=== PATIENT | male | born 1950 | race African-American/Black ===

== ENCOUNTER 2025-05-14 09:02 | Emergency (ER) | payer MEDICARE, SELFPAY ==
--- NOTE | ~2025-05-14 | XR_ITS ---
EXAMINATION: XR knee LT min 4V DATE: 05/14/2025 10:02 INDICATION: Lateral left thigh pain post fall TECHNIQUE: Anteroposterior, 2 oblique and crosstable lateral views of the left knee were obtained COMPARISON: None. FINDINGS: Alignment is normal. No fracture. Joint spaces appear normal on nonweightbearing imaging. No joint effusion. Moderate-sized enthesophyte at the patellar insertion of the distal quadriceps tendon. Small enthesopathic ossicles at the distal patellar tendon. There is mild prepatellar soft tissue swelling rim ossification along the lateral aspect of the distal left thigh. IMPRESSION: 1. No left knee joint effusion. No acute osseous abnormality. Reviewed, dictated and finalized at location A.
--- OUTSIDE RECORDS SUMMARY | 2025-05-14 09:04 | XMS_ITS | Clinical Summary ---
Author Organization [facility] Address [address] [place] [address] Care Team Providers Care Channel Development Manager Name Role Phone Broderick Vergara MD Unavailable [phone] None, Physician Primary Care Provider Unavailabl e Source Comments [facility],non-owned Affiliates and Associated Physician Practices is amultiple site organization consisting of ambulatory clinics and hospital sitesin [place], [place], [place] and [place]. This disclosure is being madepursuant to the Care Everywhere program and may not contain all information available regarding this patient. Last updated 18.[facility] Cost Effective Data Allergies No known active allergies Medications * Be aware that medications may not be up to date on this document. Alwaysverify current medications with the patient. cyanocobalamin (VITAMIN B-12) 1000 MCG tablet Take 1 tablet by mouth once daily 07/30/2017 Active sildenafil (VIAGRA) 100 MG tablet Take 1 tablet by mouth once daily as needed 10 tablet 11 04/12/2020 Active valsartan (DIOVAN) 320 MG tablet Take 1 (one) tablet by mouth once daily 11/27/2021 Active vitamin D, ergocalciferol, (Drisdol) 1.25 MG (42659 UT) capsule Take 1 (one) capsule by mouth every 7 days (once a week) 11/14/2022 Active amLODIPine (Norvasc) 10 MG tablet Take 1 (one) tablet by mouth once daily 09/09/2024 Active Active Problems Problem Noted Date Diagnosed Date Nuclear sclerotic cataract, left 12/23/2024 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 Review of prior office visit suggest reasonably stable glaucoma on topical medication thus far with greater glaucoma damage on the right compared with left. Gonioscopy following dilation does raise concern about possible appositional closure especially in the vertical quadrants of both eyes but trabecular meshwork appears open with compression 360 degrees both eyes with 1+ trabecular meshwork pigmentation. Patient has a goal of reducing dependence on medication and he should do well with a combined phaco/minimally invasive glaucoma surgery approach of the angles. 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 09/13/2023 Age-related nuclear cataract of both eyes 2017 Low vitamin B12 level 07/30/2017 Overview (07/30/2017): 376 pg Hypokalemia 07/30/2014 Adenocarcinoma of prostate (PATRICIA) 07/30/2014 Screen for colon cancer rec'd 02/27/13, 04/03/2013 Essential hypertension, benign 02/27/2013 Seasonal allergic rhinitis 02/27/2013 Resolved Problems Problem Noted Date Diagnosed Date Resolved Date Routine general medical exam ination at a health care facility 07/29/2018 08/01/2020 Peripheral sensory neuropathy 07/30/2017 08/01/2020 Encounters Date Type Department Care Team Description 03/18/2025 8:20 AM CDT Office Visit [facility] - Ophthalmology [address] [place] [phone] Buddy La MD Postsurgical states following surgery of eye and adnexa (Primary Dx) 03/18/2025 Travel from Last 3 Months Immunizations Immunization Administration Dates Next Due INFLUENZA VACCINE 06/01/2021, 9,07/15/2016,2014,06/26/2014 INFLUENZA VACCINE, QUADR. (F LUZONE; FLULAVAL; FLUARIX; AFLURIA QUADRIVALENT; 6MO+), 0.5 ML (IIV4) 07/29/2017 PNEUMOCOCCAL PPSV23 07/29/2018 Pneumococcal Pcv13 Conj 07/29/2019 TD VACCINE 02/27/2009 TDAP (7yrs+) 08/01/2020 Family History Medical History Relation Name Comments Hypertension Brother Cancer - Other Father Cancer - Other Mother Glaucoma Sister Hypertension Sister Relation Name Status Comments Brother Father Mother Sister Social History Tobacco Use Types Packs/Day Years Used Date Smoking Tobacco: Never Smokeless Tobacco: Never Tobacco Cessation:Counseling Given: No Alcohol Use Standard Drinks/Week Comments Yes 2 (1 standard drink = 0.6 oz pur e alcohol) 12 pack a month maybe PHQ-2 Answer Date Recorded Patient Health Questionnaire-2 Score 0 12/24/2024 Sex and Gender Information Value Date Recorded Sex Assigned at Not on file Legal Sex Male 1:45 PM CDT Gender Identity Not on file Sexual Orientation Not on file Last Filed Vital Signs Vital Sign Reading Time Taken Comments Blood Pressure 127/67 01/13/2025 4:37 PM CDT Pulse 53 01/13/2025 4:37 PM CDT Temperature 36.6 C (97.9 F) 01/13/2025 4:29 PM CDT Respiratory Rate 14 01/13/2025 4:37 PM CDT Oxygen Saturation 98% 01/13/2025 4:37 PM CDT Inhaled Oxygen Concentration - - Weight 102.3 kg (225 lb 9.6 oz) 025 12:22 PM CDT Height 188 cm (6' 2) 01/13/2025 12:22 PM CDT Body Mass Index 28.97 01/13/2025 12:22 PM CDT Plan of Treatment Upcoming Encounters Date Type Department Care Team (Late st Contact Info) Description 06/10/2025 2:40 PM CDT Office Visit [facility] - Ophthalmology [address] [place] [phone] Buddy La MD [address] [place] [phone] Health Maintenance Due Date Last Done Comments COLOGUARD (AGES 45-75) - COLON CA SCREENING 1950 CT COLONOGRAPHY - COLON CA SCREENING 1950 FIT - COLON CA SCREENING 1950 FLEX SIG - COLON CA SCREENING 1950 ZOSTER VACCINE (1 of 2) 2002 MEDICARE AWV CALENDAR YEAR 2024 08/01/2020 COVID-19 VACCINE ( season) 2025 INFLUENZA VACCINE (#1) 2025 , 06/29/2019, 07/29/2017, Additional history exists LIPID TESTING 08/01/2025 08/01/2020, 11/2017, 07/29/2017, Additional history exists COLON MONITORING 09/28/2026 09/28/2016, 10/2016, 09/28/2016 COLONOSCOPY - COLON CA SCREENING 09/28/2026 09/28/2016, 09/28/2016, 09/28/2016 Colorectal Cancer Screening 09/28/2026 Respiratory Syncytial Virus (RSV) Vaccine Pt: or over 60 yrs (1 - 1-dose 75+ series) 2027 DTAP/TDAP/TD VACCINES (3 - Td or Tdap) 08/01/2030 08/01/2020, 02/27/2009 HEPATITIS C SCREENING Completed 07/29/2015 PNEUMOCOCCAL VACCINE 50+ Completed 07/29/2019, 11/2017 DEPRESSION SCREENING Completed 12/24/2024 HEPATITIS B VACCINE Aged Out No longe r eligible based on patient's age to complete this topic HIB VACCINE Aged Out No longer eligi ble based on patient's age to complete this topic HPV VACCINE Aged Out No longer eligi ble based on patient's age to complete this topic MENINGOCOCCAL (Group B) VACCINE SHARED DECISION-MAKING Aged Out No longer eligible based on patient's age to complete this topic MENINGOCOCCAL GROUPS A/C/Y/W VACCINE Aged Out No longer eligible based on patient's age to complete this topic Goals Goal Patient Goal Type Associated Problems Recent Progress Patient-Stated? Author Blood Pressure < 140/90 Blood Pressure 127/67( 025 4:37 PM CDT) No Lani Bailey MA Medical Devices Implanted Type Area Railroader Device Identifier Shelf Expiration Date Model / Serial / Lot Stent Opth Russell Hydrus Strl - Sn/A Implanted:Qty: 1 on 12/23/2024 by Buddy La MD at [facility] Right: Eye [employer] 03/25/2026 [id number] / N/A / 171HP [employer] [employer] Extended Vison Uv Absorbing Iol Implanted:Qty: 1 on 12/23/2024 by Buddy La MD at [facility] Right: Eye [employer] 07/17/2026 CCWET0 15.5D / [id number] / N/A Stent Opth Russell Hydrus Strl Implanted:Qty: 1 on 01/13/2025 by Buddy La MD at [facility] Left: Eye [employer] 03/25/2026 [id number] / / 171HPH Clareon Vivity Implanted:Qty: 1 on 01/13/2025 by Buddy La MD at [facility] Left: Eye [employer] 06/08/2028 CCWET0 / [id number] / Procedures Procedure Name Priority Date/Time Associated Diagnosis Comments LIPID PROFILE Routine 08/01/2020 8:55 AM ASSEMBLY ASSOCIATE Lipid screening ENDOSCOPY, COLON, SCREENING Routine 09/28/2016 10:47 AM ASSEMBLY ASSOCIATE HEPATITIS C ANTIBODY Routine 07/29/2015 8:38 AM ASSEMBLY ASSOCIATE Need for hepatitis C screening test from Last 3 Months or Most Recently Relevant to Health Maintenance Results * (ABNORMAL) LIPID PROFILE (08/01/2020 8:55 AM ASSEMBLY ASSOCIATE) Cholesterol 207(H) <200 mg/dL [facility] INSURANCE BILL Triglycerides 120 <150 mg/dL [facility] INSURANCE BILL HDL Cholesterol 49 >40 mg/dL [facility] INSURANCE BILL VLDL Calculated 24 <=30 mg/dL [facility] INSURANCE BILL LDL Calculated 134(H) <130 mg/dL [facility] INSURANCE BILL Comment:Not calculated Blood BLOOD SPECIMEN / Unknown 08/01/2020 8:55 AM ASSEMBLY ASSOCIATE 08/01/2020 Narrative Resulting Agency Comment Lab Testing performed at: [facility] [address] [facility] [phone] Talon Clancy DO LAB - CHEMISTRY ORDERABLES Final Result [facility] INSURANCE BILL [address] [place] [address] * ENDOSCOPY, COLON, SCREENING (09/28/2016 10:47 AM ASSEMBLY ASSOCIATE) Report Endoscopy POC _ Patient Name: Cornell Chi Procedure Date: 09/28/2016 10:47 AM Date of : 1950 Admit Type: Outpatient Age: 66 Gender: Male Attending MD: Pantera Ramos MD _ Procedure: Colonoscopy Indications: Screening for colorectal malignant neoplasm Providers: Pantera Ramos MD (Doctor), Billie Garcia RN, Brent Valladares, Bottle Line Worker Referring MD: Oni Campos MD (Referring MD) Medicines: Monitored Anesthesia Care Complications: No immediate complications. _ Procedure: Pre-Anesthesia Assessment: - ASA Grade Assessment: II - A patient with mild systemic disease. - Airway Examination: Mallampati Class I (tonsillar pillars visualized). After I obtained informed consent, the scope was passed under direct vision. Throughout the procedure, the patient's blood pressure, pulse, and oxygen saturations were monitored continuously. The Colonoscope was introduced through the anus and advanced to the cecum, identified by appendiceal orifice and ileocecal valve. The colonoscopy was performed without difficulty. The patient tolerated the procedure well. The quality of the bowel preparation was good. Impression: - One 5 mm polyp in the rectum, removed with a cold biopsy forceps. Resected and retrieved. - Diverticulosis. Findings: A 5 mm polyp was found in the rectum. The polyp was sessile. The polyp was removed with a cold biopsy forceps. Resection and retrieval were complete. Estimated blood loss: none. A few small-mouthed diverticula were found in the colon. _ Recommendation: - Repeat colonoscopy in 5-10 years for screening purposes. Procedure Code(s): --- Professional --- 45750, Colonoscopy, flexible; with biopsy, single or multiple --- Technical --- 91801, Colonoscopy, flexible; with biopsy, single or multiple Diagnosis Code(s): --- Professional --- Z12.11, Encounter for screening for malignant neoplasm of colon K62.1, Rectal polyp K57.30, Diverticulosis of large intestine without perforation or abscess without bleeding --- Technical --- Z12.11, Encounter for screening for malignant neoplasm of colon K62.1, Rectal polyp K57.30, Diverticulosis of large intestine without perforation or abscess without bleeding CPT copyright 2015 [employer]. All rights reserved. The codes documented in this report are preliminary and upon engineer intern review may be revised to meet current compliance requirements. Pantera Ramos MD 09/28/2016 11:33:29 AM This report has been signed electronically. Number of Addenda: 0 Note Initiated On: 09/28/2016 10:47 AM [facility] ENDOSCOPY 09/28/2016 10:4 7 AM ASSEMBLY ASSOCIATE us Pantera Ramos MD GI PROCEDURE ORDERABLES Edited R esult - Final [facility] ENDOSCOPY * HEPATITIS C ANTIBODY (07/29/2015 8:38 AM ASSEMBLY ASSOCIATE) Hepatitis C Antibody Non Reactive Non Reactive [facility] ACCOUNT BILL Comment: Non Reactive - Antibodies to Hepatitis C virus (HCV) were no t detected, result does not exclude early acute HCV infection. Blood specimen (specimen) BLOOD SPECIMEN / Unknown 07/29/2015 8:38 AM ASSEMBLY ASSOCIATE 07/29/2015 1:00 PM ASSEMBLY ASSOCIATE Narrative Resulting Agency Comment [facility] [address] [id number] Oni Campos III, MD LAB - CHEMISTRY ORDERABLES Final Result [facility] ACCOUNT BILL [address] [place] [address] from Last 3 Months or Most Recently Relevant to Health Maintenance Insurance [facility] Care Teams Channel Development Manager Relationship Specialty Start Date End Date None, Physician [address] [place] [address] PCP - General 01/24/23 Broderick Vergara MD Urology 08/01/20
--- NOTE | 2025-05-14 09:21 | ED.LOWEXIN ---
HPI - Extremity Injury (Lower) General Chief Complaint: Extremity Injury, Lower Stated Complaint: left knee injury Time Seen by Provider: 05/14/25 09:21 Source: patient Mode of arrival: ambulatory Limitations: no limitations History of Present Illness HPI Narrative: Cornell is a 74-year-old male patient presenting to the ER today with complaints of left knee pain/injury. He reports he fell off of a garage step on Saturday and hit the left knee. Has contusion with swelling to the left knee. He states he did fall again on as his knee gave out on him. He rates his pain currently a /10. Has been taking leftover hydrocodone he had from a dental procedure. Related Data Allergies Allergy/AdvReac Type Severity Reaction Status Date / Time No Known Allergies Allergy Unverified 09/27/18 19:13 Review of Systems Review of Systems: Pertinent positives per HPI. Patient denies any fever, chills, rash, headache, visual changes, dizziness, cough, runny nose, sore throat, shortness of breath, chest pain, palpitations, nausea, vomiting, diarrhea, constipation, abdominal pain, or any urinary issues. PMFSH Comments At the time of my signature, I reviewed and agree with the nursing past medical, surgical, social, and family history. There is no relevant family history pertinent to the patient complaint. Exam Narrative: General: Well-developed, well nourished, in no apparent distress Head: Normocephalic, atraumatic. Cardio: Regular rate and rhythm, s1 and s2 normal, no murmur appreciated. Resp: Clear to auscultation bilaterally, no rhonchi, rales, wheezing or rubs. Musculoskeletal: No deformity, bruising/swelling noted to the left knee, contusion to the medial anterior knee, fluid palpable over the left medial knee, tender to palpation over the lateral hamstring musculature, grossly normal range of motion, muscle strength strong and equal, peripheral pulse strong, no cyanosis, normal gait and station Course Course Emergency Course: Portions of this record may have been created with voice recognition software. Vital Signs Vital signs: Vital Signs Temperature 36.8 C 05/14/25 09:23 Pulse Rate 87 05/14/25 09:23 Respiratory Rate 16 05/14/25 09:23 Blood Pressure 154/75 H 05/14/25 09:23 Pulse Oximetry 99 05/14/25 09:23 Temperature 36.8 C 05/14/25 09:23 Pulse Rate 87 05/14/25 09:23 Respiratory Rate 16 05/14/25 09:23 Blood Pressure 154/75 H 05/14/25 09:23 Pulse Oximetry 99 05/14/25 09:23 Vital signs reviewed MDM - Extremity Injury (Lower) MDM Narrative Medical decision making narrative: At the time of visit patient is resting comfortably on the exam table. Patient appears to be nontoxic. Complaints of left knee pain/injury. He reports he fell off of a garage step on Saturday and hit the left knee. Has contusion with swelling to the left knee. He states he did fall again on as his knee gave out on him. He rates his pain currently a 1/10. Has been taking leftover hydrocodone he had from a dental procedure. Bruising/swelling noted to the left knee, contusion over the left medial knee, fluid palpable over the left medial knee, tender to palpation over the lateral hamstring musculature. X-ray of the left knee was ordered. Diagnostics: X-ray of the left knee showed no sign of fracture or malalignment. Plan: I suspect patient has a left knee contusion with a lateral hamstring strain. Jeovanny wrap and ice pack was given. Sensation, circulation, and motion within normal limits after a Jeovanny wrap application. Recommend follow-up with PCP in 1 week if symptoms persist or may follow-up with Dr. Garcia if symptoms worsen. Supportive measures were discussed with the patient and they voiced understanding discharge instructions and agrees to treatment plan. Return precautions reviewed Differential Diagnosis Differential diagnosis: Likely acute internal derangement of knee and other (Knee sprain, knee fracture) Imaging Data Radiologist's impression: ITS Impressions Knee X-Ray 05/14/25 10:03 IMPRESSION: 1. No left knee joint effusion. No acute osseous abnormality. Discharge Plan Discharge Clinical Impression: Contusion of knee Qualifiers: Encounter type: initial encounter Laterality: left Qualified Code(s): S80.02XA - Contusion of left knee, initial encounter Left hamstring muscle strain Qualifiers: Encounter type: initial encounter Qualified Code(s): S76.312A - Strain of muscle, fascia and tendon of the posterior muscle group at thigh level, left thigh, initial encounter Patient Disposition: Home Condition: Stable Instructions: Antibiotic Form, Knee Pain (ED) Additional Instructions: X-rays negative for any acute fracture or malalignment of the left knee Rest, ice, elevate, and wear jeovanny wrap as directed May use hinged knee brace to help stabilize knee when walking Tylenol/motrin for pain as discussed. May apply Aspercreme, blue emu, or Voltaren cream to the strain hamstring Gradually bear weight Follow up with your PCP if symptoms persist more than 1 week. If symptoms persist may follow-up with Dr. Bravo orthopaedic provider Patient Language: Guamanian Follow-up/Referrals: Eduardo Bravo MD [Physician, Orthopedics] - 1 Week Clinical Impression: Contusion of knee PHYSICIAN,COPPING MACHINE OPERATOR [Non-Staff, Internal Medicine] Time of Disposition: 10:27 Quality NIHSS Nursing Documentation ED NIHSS nursing documentation: reviewed/agree
[2025-05-14 09:23] VITALS: BP 154/75; PULSE 87; RESP 16; TEMP 36.8; O2SAT 99
--- OUTSIDE RECORDS SUMMARY | 2025-05-14 09:38 | XMS_ITS | Clinical Summary ---
Author Organization [facility] Address [address] [place] [address] Care Team Providers Care Banquet Waiter/Waitress Name Role Phone Broderick Vergara MD Unavailable [phone] None, Physician Primary Care Provider Unavailabl e Source Comments [facility],non-owned Affiliates and Associated Physician Practices is amultiple site organization consisting of ambulatory clinics and hospital sitesin [place], [place], [place] and [place]. This disclosure is being madepursuant to the Care Everywhere program and may not contain all information available regarding this patient. Last updated 18.[facility] [employer] Allergies No known active allergies Medications * [...] Active vitamin D, ergocalciferol, (Drisdol) 1.25 MG (79293 UT) capsule Take 1 (one) capsule by [...] Description 03/18/2025 8:20 AM CDT Office Visit [facility] - Ophthalmology [address] [place] [phone] Buddy La MD Postsurgical states following surgery [...] Visit [facility] - [facility]mology [address] [place] [phone] Buddy La MD [address] [place] [phone] Health Maintenance Due Date Last Done Comments [...] Bailey MA Medical Devices Implanted Type Area Cook Relief Device Identifier Shelf Expiration Date Model / Serial / Lot Stent Opth Russell Hydrus Strl - Sn/A Implanted:Qty: 1 on 12/23/2024 by Buddy La MD at [facility] Right: Eye [employer] 03/25/2026 [id number] / N/A / 171HP [employer] Extended Vison Uv Absorbing Iol Implanted:Qty: 1 on 12/23/2024 by Buddy La MD at [facility] Right: Eye [employer] 07/17/2026 CCWET0 15.5D / [id number] / N/A Stent Opth Russell Hydrus Strl Implanted:Qty: 1 on 01/13/2025 by Buddy La MD at [facility] Left: Eye [employer] 03/25/2026 [id number] / / 171HPH [employer]on [employer]ivity Implanted:Qty: 1 on 01/13/2025 by Buddy La MD at [facility] Left: Eye [employer] 06/08/2028 CCWET0 / [id number] / Procedures Procedure Name Priority Date/Time Associated Diagnosis Comments LIPID PROFILE Routine 08/01/2020 8:55 AM CODING ANALYST Lipid screening ENDOSCOPY, COLON, SCREENING Routine 09/28/2016 10:47 AM CODING ANALYST HEPATITIS C ANTIBODY Routine 07/29/2015 8:38 AM CODING ANALYST Need for hepatitis C screening test from Last 3 Months or Most Recently Relevant to Health Maintenance Results * (ABNORMAL) LIPID PROFILE (08/01/2020 8:55 AM CODING ANALYST) Cholesterol 207(H) <200 mg/dL [facility] INSURANCE BILL Triglycerides 120 <150 mg/dL [facility] INSURANCE BILL HDL Cholesterol 49 >40 mg/dL [facility] INSURANCE BILL VLDL Calculated 24 <=30 mg/dL [facility] INSURANCE BILL LDL Calculated 134(H) <130 mg/dL [facility] INSURANCE BILL Comment:Not calculated Blood BLOOD SPECIMEN / Unknown 08/01/2020 8:55 AM CODING ANALYST 08/01/2020 Narrative Resulting Agency Comment Lab Testing performed at: [facility] [address] [facility] [phone] Talon Clancy DO LAB - CHEMISTRY ORDERABLES Final Result [facility] INSURANCE BILL [address] [place] [id number] * ENDOSCOPY, COLON, SCREENING (09/28/2016 10:47 AM CODING ANALYST) Report Endoscopy POC _ Patient Name: Cornell Chi Procedure Date: 09/28/2016 10:47 AM Date of : 1950 Admit Type: Outpatient Age: 66 Gender: Male Attending MD: Pantera Ramos MD _ Procedure: Colonoscopy Indications: Screening for colorectal malignant neoplasm Providers: Pantera Ramos MD (Doctor), Billie Garcia RN, Brent Valladares, Medical Science Liaison Referring MD: Oni Campos MD (Referring MD) [...] screening purposes. Procedure Code(s): --- Professional --- 24853, Colonoscopy, flexible; with biopsy, single or multiple --- Technical --- 86771, Colonoscopy, flexible; with biopsy, single or multiple [...] or abscess without bleeding CPT copyright 2015 [employer]. All rights reserved. The codes documented in this report are preliminary and upon pediatric oncologist review may be revised to meet current compliance requirements. Pantera Ramos MD 09/28/2016 11:33:29 AM This report has been signed electronically. Number of Addenda: 0 Note Initiated On: 09/28/2016 10:47 AM [facility] ENDOSCOPY 09/28/2016 10:4 7 AM CODING ANALYST us Pantera Ramos MD GI PROCEDURE ORDERABLES Edited R esult - Final [facility] ENDOSCOPY * HEPATITIS C ANTIBODY (07/29/2015 8:38 AM CODING ANALYST) Hepatitis C Antibody Non Reactive Non Reactive [facility] ACCOUNT BILL Comment: Non Reactive - Antibodies to Hepatitis C virus (HCV) were no t detected, result does not exclude early acute HCV infection. Blood specimen (specimen) BLOOD SPECIMEN / Unknown 07/29/2015 8:38 AM CODING ANALYST 07/29/2015 1:00 PM CODING ANALYST Narrative Resulting Agency Comment [facility] [address] [facility] [phone] Oni Campos III, MD LAB - CHEMISTRY ORDERABLES Final Result [facility] ACCOUNT BILL [address] [place] [address] from Last 3 Months or Most Recently Relevant to Health Maintenance Insurance [facility] Care Teams Banquet Waiter/Waitress Relationship Specialty Start Date End Date None, Physician [address] [place] [address] PCP - General 01/24/23 Broderick Vergara MD Urology 08/01/20
== END 2025-05-14 11:13 | disposition home or self-care (01) ==
PROVIDERS: Emergency Provider Nurse Practitioner Family; PCP Family Medicine
DX: S80.02XA Contusion of left knee, initial encounter (principal); W10.9XXA Fall (on) (from) unspecified stairs and steps, initial encounter
CPT/HCPCS: 73564; 99283

== ENCOUNTER 2025-06-01 09:12 | Outpatient (CLI) | payer MEDICARE, SELFPAY ==
--- NOTE | 2025-06-01 09:30 | ECG_ITS ---
Test Date: 2025-06-01 09:35:00 Measurements Intervals [place] Rate: 69 P: 55 [place]: 156 QRS: 8 QRSD: 91 T: -15 QT: 362 QTc: 388 Interpretive Statements SINUS RHYTHM WITH OCCASIONAL VENTRICULAR PREMATURE COMPLEXES NONSPECIFIC ST-T WAVE ABNORMALITY- INFERIOR LEADS BASELINE ARTIFACT- I, II, III, AVR, AVL, AVF, V3-V6 BORDERLINE ECG No previous ECG available for comparison Electronically Signed On 06-01-2025 09:37:46 CDT by Tony Moore D.O.
--- OUTSIDE RECORDS SUMMARY | 2025-06-01 09:41 | XMS_ITS | Clinical Summary ---
Author Organization [facility] Address [address] [place] [address] Care Team Providers Care Vp Home Health Name Role Phone Broderick Vergara MD Unavailable [phone] None, Physician Primary Care Provider Unavailabl e Source Comments [facility],non-owned Affiliates and Associated Physician Practices is amultiple site organization consisting of ambulatory clinics and hospital sitesin [place], [place], [place] and [place]. This disclosure is being madepursuant to the Care Everywhere program and may not contain all information available regarding this patient. Last updated 18.[facility]ti Allergies No known active allergies Medications * [...] Active vitamin D, ergocalciferol, (Drisdol) 1.25 MG (56515 UT) capsule Take 1 (one) capsule by [...] Description 03/18/2025 8:20 AM CDT Office Visit [facility] - Ophthalmology [address] [place] [phone] Buddy aL MD Postsurgical states following surgery of eye [...] Visit [facility] - Ophthalmology [address] [place] [phone] Buddy La MD [address] [place] [phone] Health Maintenance Due Date Last Done Comments [...] Bailey MA Medical Devices Implanted Type Area Biostatistics Manager Device Identifier Shelf Expiration Date Model / Serial / Lot Stent Opth Russell Hydrus Strl - Sn/A Implanted:Qty: 1 on 12/23/2024 by Buddy La MD at [facility] Right: Eye [employer] 03/25/2026 [id number] / N/A / 171HP Clareon Vivity Extended Vison Uv Absorbing Iol Implanted:Qty: 1 on 12/23/2024 by Buddy La MD at [facility] Right: Eye [employer] 07/17/2026 CCWET0 15.5D / [id number] / N/A Stent Opth Russell Hydrus Strl Implanted:Qty: 1 on 01/13/2025 by Buddy La MD at [facility] Left: Eye [employer] 03/25/2026 [id number] / / 171HPH Clareon Vivity Implanted:Qty: 1 on 01/13/2025 by Buddy La MD at [facility] Left: Eye [employer] 06/08/2028 CCWET0 / [id number] / Procedures Procedure Name Priority Date/Time Associated Diagnosis Comments LIPID PROFILE Routine 08/01/2020 8:55 AM FORM PRESS OPERATOR Lipid screening ENDOSCOPY, COLON, SCREENING Routine 09/28/2016 10:47 AM FORM PRESS OPERATOR HEPATITIS C ANTIBODY Routine 07/29/2015 8:38 AM FORM PRESS OPERATOR Need for hepatitis C screening test from Last 3 Months or Most Recently Relevant to Health Maintenance Results * (ABNORMAL) LIPID PROFILE (08/01/2020 8:55 AM FORM PRESS OPERATOR) Cholesterol 207(H) <200 mg/dL [facility] INSURANCE BILL Triglycerides 120 <150 mg/dL [facility] INSURANCE BILL HDL Cholesterol 49 >40 mg/dL [facility] INSURANCE BILL VLDL Calculated 24 <=30 mg/dL [facility] INSURANCE BILL LDL Calculated 134(H) <130 mg/dL [facility] INSURANCE BILL Comment:Not calculated Blood BLOOD SPECIMEN / Unknown 08/01/2020 8:55 AM FORM PRESS OPERATOR 08/01/2020 Narrative Resulting Agency Comment Lab Testing performed at: [facility] [address] [phone] Talon Clancy DO LAB - CHEMISTRY ORDERABLES Final Result [facility] INSURANCE BILL [address] [place] [address] * ENDOSCOPY, COLON, SCREENING (09/28/2016 10:47 AM FORM PRESS OPERATOR) Report Endoscopy POC _ Patient Name: Cornell Chi Procedure Date: 09/28/2016 10:47 AM Date of : 1950 Admit Type: Outpatient Age: 66 Gender: Male Attending MD: Pantera Ramos MD _ Procedure: Colonoscopy Indications: Screening for colorectal malignant neoplasm Providers: Pantera Ramos MD (Doctor), Billie Garcia RN, Brent Valladares, Proofer Black [employer] White Referring MD: Oni Campos MD (Referring MD) [...] screening purposes. Procedure Code(s): --- Professional --- 07796, Colonoscopy, flexible; with biopsy, single or multiple --- Technical --- 66468, Colonoscopy, flexible; with biopsy, single or multiple [...] or abscess without bleeding CPT copyright 2015 [employer] [place] [employer]. All rights reserved. The codes documented in this report are preliminary and upon tooler review may be revised to meet current compliance requirements. Pantera Ramos MD 09/28/2016 11:33:29 AM This report has been signed electronically. Number of Addenda: 0 Note Initiated On: 09/28/2016 10:47 AM [facility] ENDOSCOPY 09/28/2016 10:4 7 AM FORM PRESS OPERATOR us Pantera Ramos MD GI PROCEDURE ORDERABLES Edited R esult - Final [facility] ENDOSCOPY * HEPATITIS C ANTIBODY (07/29/2015 8:38 AM FORM PRESS OPERATOR) Hepatitis C Antibody Non Reactive Non Reactive [facility] ACCOUNT BILL Comment: Non Reactive - Antibodies to Hepatitis C virus (HCV) were no t detected, result does not exclude early acute HCV infection. Blood specimen (specimen) BLOOD SPECIMEN / Unknown 07/29/2015 8:38 AM FORM PRESS OPERATOR 07/29/2015 1:00 PM FORM PRESS OPERATOR Narrative Resulting Agency Comment [facility] [address] [phone] Oni Campos III, MD LAB - CHEMISTRY ORDERABLES Final Result [facility] ACCOUNT BILL [address] [place] [address] from Last 3 Months or Most Recently Relevant to Health Maintenance Insurance [facility] Care Teams Vp Home Health Relationship Specialty Start Date End Date None, Physician [address] [place] [address] PCP - General 01/24/23 Broderick Vergara MD Urology 08/01/20
== END 2025-06-01 09:13 | disposition home or self-care (01) ==
LOC: ANHSURGERY 09:16
PROVIDERS: PCP Family Medicine; Visit Provider Orthopaedic Surgery
DX: I10 Essential (primary) hypertension (principal); Z01.818 Encounter for other preprocedural examination; R94.31 Abnormal electrocardiogram [ECG] [EKG]
CPT/HCPCS: 93005

== ENCOUNTER 2025-06-02 02:23 | Day surgery (SDC) | payer MEDICARE, SELFPAY ==
--- NOTE | 2025-05-31 09:12 | PC.NURSE ---
[facility] has started construction of its new state of the art ER which will open Spring 2026. With this, we anticipate parking may be a challenge for some our surgical patients and families. Parking spaces are limited but are available for all Surgical, obstetrics, and ER patients sharing this lot. If you arrive and find you are having a hard time finding a parking space, please note that we understand the challenges, please drive around the hospital and park near Hospital Entrance 1. When you enter this entrance, you can ask a volunteer to direct or take you back to the surgical waiting area to check in. We appreciate everyone?s understanding of these expected challenges while we build for your future. Report to the Outpatient Waiting Room, entrance under the green pavilion located off [address], at time _1200 noon on date __06/02/25 . Planned Procedure Time: __2 pm .? Time changes happen often and if your time is changed the preop area will call you the afternoon before. - You and your visitor will be asked to self-screen and do not enter if you have any COVID symptoms. Please call surgeon if you need to reschedule. - A mask is optional within the hospital at this time. Patients may have clear liquids (water, carbonated beverages, clear teas, apple juice) until 3 hours prior to surgery ( 11 am)with a maximum of 20 ounces. - No food from midnight until time of surgery and no smoking, or chewing tobacco (or any form of nicotine). No chewing gum, candy or mints. - Infants may have breast milk until 4 hours before surgery, infant formula 6 hours prior to surgery. - Children will be allowed to drink immediately following surgery.? If applicable, please bring a bottle or sippy cup to assist with drinking. Juice, water, soda, and popsicles are readily available.? For infants on formula, please bring formula the day of surgery.? Pacifiers are allowed. Take only the following medications with a SIP of water on the morning of surgery: __AMLODIPINE DO NOT STOP ANY OF YOUR OTHER PRESCRIPTION MEDICATIONS PRIOR TO SURGERY EXCEPT THE FOLLOWING Hold all vitamins and supplements for 3 days per anesthesiologist.LAST DOSE 05/31/25 PER PT Medications to discontinue per physician NONE Please no make-up, nail frisian, hairspray, perfume, deodorant, or body powder the day of surgery.? No jewelry (including any body piercings) or valuables the day of surgery, leave them at home.? Please take a shower or bath the night before, or the morning of, surgery with an antibacterial soap.? Wear comfortable, loose fitting clothing.? Children are encouraged to wear pajamas. - Jewelry must be removed prior to entering the operating room.? Rings and piercings that are not removed may be cut off. - The hospital will not accept responsibility for valuables.? - Please leave all valuables, including medications, at home the day of surgery. If you are going home after surgery, a licensed independent driver must drive you home.? - NO public transportation without another adult if you receive anesthesia. - We recommend that an adult stay with you for 24 hours following discharge. - We also recommend that you do not drive, make important decision, drink alcoholic beverages, or take any drugs that were not prescribed by your health care provider for at least 24 hours after your discharge time. For Pediatric surgeries, we recommend two adults accompany the child home. Follow any additional instructions given to you from your surgeon. Telephone instructions given to _PATIENT and asked if any additional questions and then verbalized understanding. Patient advised to call surgeon office or pre surgery nurse liaison [phone] if any additional questions.
[2025-05-31 09:26] VITALS: BMI 29.6
[2025-06-02] VITALS (11 sets, daily range): BP systolic 127–157; BP diastolic 64–96; PULSE 62–90; RESP 12–18; TEMP 35.9–37.4; O2SAT 94–100; BMI 29.5
--- OUTSIDE RECORDS SUMMARY | 2025-06-02 02:26 | XMS_ITS | Clinical Summary ---
Author Organization [facility] Address [address] [facility] [place] [address] Care Team Providers Care Site Operations Manager Name Role Phone Broderick Vergara MD Unavailable [phone] None, Physician Primary Care Provider Unavailabl e Source Comments [facility],non-owned Affiliates and Associated Physician Practices is amultiple site organization consisting of ambulatory clinics and hospital sitesin [place], [place], [place] and [place]. This disclosure is being madepursuant to the Care Everywhere program and may not contain all information available regarding this patient. Last updated 18.[facility] [employer] Allergies No known active allergies Medications * [...] Active vitamin D, ergocalciferol, (Drisdol) 1.25 MG (44009 UT) capsule Take 1 (one) capsule by [...] Description 03/18/2025 8:20 AM CDT Office Visit [facility] - Ophthalmology [address] [place] [phone] Buddy La MD Postsurgical states following surgery [...] Visit [facility] - Op[facility]mology [address] [place] [phone] Buddy La MD [address] [place] [phone] Health Maintenance Due Date Last Done Comments [...] 127/67( 025 4:37 PM CDT) No Lani Baliey MA Medical Devices Implanted Type Area Bindery Supervisor Device Identifier Shelf Expiration Date Model / Serial / Lot Stent Opth Russell Hydrus Strl - Sn/A Implanted:Qty: 1 on 12/23/2024 by Buddy La MD at [facility] Right: Eye [employer] 03/25/2026 [id number] / N/A / 171HP [employer] Extended Vison Uv Absorbing Iol Implanted:Qty: 1 on 12/23/2024 by Buddy La MD at [facility] Right: Eye [employer] 07/17/2026 CCWET0 15.5D / [id number] / N/A Stent Opth Russell Hydrus Strl Implanted:Qty: 1 on 01/13/2025 by Buddy La MD at [facility] Left: Eye [employer] 03/25/2026 [id number] / / 171HPH Clareon Vivity Implanted:Qty: 1 on 01/13/2025 by Buddy aL MD at [facility] Left: Eye [employer] 06/08/2028 CCWET0 / [id number] / Procedures Procedure Name Priority Date/Time Associated Diagnosis Comments LIPID PROFILE Routine 08/01/2020 8:55 AM DIPPER CLOCK AND WATCH [employer]S Lipid screening ENDOSCOPY, COLON, SCREENING Routine 09/28/2016 10:47 AM DIPPER CLOCK AND WATCH HANDS HEPATITIS C ANTIBODY Routine 07/29/2015 8:38 AM DIPPER CLOCK AND WATCH HANDS Need for hepatitis C screening test from Last 3 Months or Most Recently Relevant to Health Maintenance Results * (ABNORMAL) LIPID PROFILE (08/01/2020 8:55 AM DIPPER CLOCK AND WATCH HANDS) Cholesterol 207(H) <200 mg/dL [facility] INSURANCE BILL Triglycerides 120 <150 mg/dL [facility] INSURANCE BILL HDL Cholesterol 49 >40 mg/dL [facility] INSURANCE BILL VLDL Calculated 24 <=30 mg/dL [facility] INSURANCE BILL LDL Calculated 134(H) <130 mg/dL [facility] INSURANCE BILL Comment:Not calculated Blood BLOOD SPECIMEN / Unknown 08/01/2020 8:55 AM DIPPER CLOCK AND WATCH HANDS 08/01/2020 Narrative Resulting Agency Comment Lab Testing performed at: [facility] [address] [id number] Talon Clancy DO LAB - CHEMISTRY ORDERABLES Final Result [facility] INSURANCE BILL [address] [place] [address] * ENDOSCOPY, COLON, SCREENING (09/28/2016 10:47 AM DIPPER CLOCK AND WATCH HANDS) Report Endoscopy POC _ Patient Name: Cornell Chi Procedure Date: 09/28/2016 10:47 AM Date of : 1950 Admit Type: Outpatient Age: 66 Gender: Male Attending MD: Pantera Ramos MD _ Procedure: Colonoscopy Indications: Screening for colorectal malignant neoplasm Providers: Pantera Ramos MD (Doctor), Billie Garcia RN, Brent Valladares, Software Systems Architect Referring MD: Oni Campos MD (Referring MD) [...] screening purposes. Procedure Code(s): --- Professional --- 25196, Colonoscopy, flexible; with biopsy, single or multiple --- Technical --- 60583, Colonoscopy, flexible; with biopsy, single or multiple [...] or abscess without bleeding CPT copyright 2015 [place] [employer]. All rights reserved. The codes documented in this report are preliminary and upon chief investigator review may be revised to meet current compliance requirements. Pantera Ramos MD 09/28/2016 11:33:29 AM This report has been signed electronically. Number of Addenda: 0 Note Initiated On: 09/28/2016 10:47 AM [facility] ENDOSCOPY 09/28/2016 10:4 7 AM DIPPER CLOCK AND WATCH HANDS us Pantera Ramos MD GI PROCEDURE ORDERABLES Edited R esult - Final [facility] ENDOSCOPY * HEPATITIS C ANTIBODY (07/29/2015 8:38 AM DIPPER CLOCK AND WATCH HANDS) Hepatitis C Antibody Non Reactive Non Reactive [facility] ACCOUNT BILL Comment: Non Reactive - Antibodies to Hepatitis C virus (HCV) were no t detected, result does not exclude early acute HCV infection. Blood specimen (specimen) BLOOD SPECIMEN / Unknown 07/29/2015 8:38 AM DIPPER CLOCK AND WATCH HANDS 07/29/2015 1:00 PM DIPPER CLOCK AND WATCH HANDS Narrative Resulting Agency Comment [facility] [address] [id number] Oni Campos III, MD LAB - CHEMISTRY ORDERABLES Final Result [facility] ACCOUNT BILL [address] [place] [address] from Last 3 Months or Most Recently Relevant to Health Maintenance Insurance [facility] Care Teams Site Operations Manager Relationship Specialty Start Date End Date None, Physician [address] [place] [address] PCP - General 01/24/23 Broderick Vergara MD Urology 08/01/20
--- NOTE | 2025-06-02 07:22 | WPDHPUPDATE1 ---
History and Physical Update Update Date/Time: 06/02/25 07:22 History and Physical has been reviewed, including an updated exam of the patient. There are NO changes in the patient's condition. Risks, benefits, and alternatives have been discussed and questions answered. Patient agrees to proceed with procedure.
[2025-06-02] MEDS: LACTATED RINGERS 1,000 ML 30 ML IV CONT ×2 (11:05→14:06)
[2025-06-02] MEDS: CELECOXIB 200 MG CAPSULE PO (11:08)
[2025-06-02] MEDS: ACETAMINOPHEN 500 MG TABLET 1000 MG PO (11:08)
--- NOTE | 2025-06-02 11:47 | P.PNAN_ITS ---
Anes - Initial Pre Proc Eval Procedure: Operation Date: 06/02/25 11:30 Proposed Procedures p Left Quadricep Tendon Repair - Eduardo Bravo MD Date/Time: 06/02/25 11:47 Surgeon: Eduardo Bravo MD Pre Op Diagnosis: lt distal quad tendon rupture Patient Data Age: 74 Gender: M Height: 1.88 m Weight: 104.8 kg Allergies Allergy/AdvReac Type Severity Reaction Status Date / Time No Known Allergies Allergy Verified 06/02/25 10:30 Home Medications ?Medication ?Instructions ?Recorded ?Confirmed ?Type chlorhexidine gluconate 4 % 1 applic topical ONCE #237 mL 05/28/25 05/31/25 Rx topical liquid (Hibiclens) amlodipine 10 mg tablet 10 mg PO DAILY 05/31/2502/17 History cyanocobalamin (vitamin B-12) 1,000 mcg PO DAILY 05/3105/31/25 History 1,000 mcg capsule ergocalciferol (vitamin D2) 1,250 50,000 unit PO WEEKL Y 05/31/25 05/31/25 His tory mcg (50,000 unit) capsule valsartan 320 mg tablet 320 mg PO DAILY 05/31/2502/17 History Patient hx anesthesia problems: none Family hx anesthesia problems: none Results Review: All pre-operative results and documents have been reviewed as part of the pre- operative evaluation. [facility] Past Medical History Medical History Hypertension Prostate cancer 2013 Social History Social History Years smoked: 5 Smoking status: Never smoker Tobacco type: cigarettes Smoking end date: 08/26/75 Alcohol intake: current Drinks per week: 6 Alcohol use details: VODKA/BEER Living arrangements: with family Spiritual care concerns: No Anes - Eval Final PreProcedure Day of Procedure 06/02/25 11:47 Patient weight: overweight Heart: regular rate and rhythm Lungs: clear to auscultation Airway: Mallampati scale class II Neurological: alert and oriented Last oral intake: >/= 8 hours ASA classification: II Emergent: no Anesthetic plan: proceed Anesthesia type and monitoring: general LMA and standard monitoring Results Review: All pre-operative results and documents have been reviewed as part of the pre- operative evaluation. Informed Consent: The patient's anesthetic plan and its attendant risks and benefits were discussed with the patient/family/POA. Questions were solicited and answers provided to the satisfaction of the patient/family/POA.
[2025-06-02] MEDS: ceFAZolin 2 GM in SODIUM CHLORIDE 0.9% IV 50 ML 100 ML IVPB ×2 (12:05→19:42)
[2025-06-02] MEDS: SODIUM CHLORIDE 0.9% IV 37.7 ML, MORPHINE SULFATE INJ (*CRX) 2 MG, ROPivacaine HCL 1% 2... INFILTRATE (12:44)
--- NOTE | 2025-06-02 14:09 | W.PM.PROC2 ---
Procedure Note - Detailed Date of Procedure 06/02/25 Pre-op Diagnosis lt distal quad tendon rupture Post-op Diagnosis Same Procedure Performed LEFT QUADRICEPS TENDON REPAIR Surgeon Eduardo Bravo MD Anesthesia General Description of Procedure THE PATIENT WAS TAKEN TO THE OPERATING ROOM INTUBATED AND AND PLACED UNDER GENERAL ANESTHESIA. THE LEFT LEG WAS PREPPED IN THE STERILE FASHION. THE INCISION WAS MADE OVER THE MIDLINE AREA OF THE KNEE DOWN TO THE FASCIA LAYER. DISSECTION CONTINUED PROXIMALLY UNTIL THE QUAD TENDON RUPTURE WAS IDENTIFIED. A LARGE HEMATOMA WAS EVACUATED FROM THE KNEE JOINT. THERE WERE RENTS IN THE MEDIAL AND LATERAL RETINACULUM. THE KNEE JOINT WAS IRRIGATED WITH STERILE WATER. AN ARTHREX FIBER MESH SUTURE WAS WEAVED USING A KRACKOW TYPE TECHNIQUE PROXIMALLY AND DISTALLY AT BOTH THE MEDIAL AN LATERAL EDGES OF THE QUAD TENDON. THE SUTURES WERE LOADED IN TO AN ARTHREX SWIVEL LOCK ANCHOR X 2 AND INSERTED INTO THE SUPERIOR POLE OF THE PATELLA. THE BITES WERE EXCELLENT. NEXT THE MEDIAL AND LATERAL RETINACULUM WAS REPAIRED WITH #1 VICRYL SUTURES. THE REPAIR WAS EXCELLENT. THE WOUND WAS IRRIGATED WITH COPIOUS AMOUNTS OF SALINE SOLUTION. THE SUBCUTANEOUS LAYER WAS REPAIRED WITH 2-0 VICRYL AND THE SKIN WITH 3-0 VICRYL AND DERMABOND. THE WOUND WAS WASHED AND PLACE IN A STERILE DRESSING. THE PATIENT WAS EXTUBATED. Estimated Blood Loss 50 Drains No Packing No Pathology None sent Complications No immediate complications Condition Stable Disposition PACU
[2025-06-02] MEDS: fentaNYL CITRATE INJ (*CRX) 100 MCG/2 ML VIAL 25 MCG IV PUSH ×6 (14:16→14:57)
--- NOTE | 2025-06-02 15:25 | ADMGEN ---
This patient, Cornell Chi, was admitted to 3 [facility] Surg Room 309-01. Patient/family oriented to hospital policies and general routines including ID bracelet, bed and alarms, visiting hours, pain management, procedures, bathroom and other care routines, personal items, smoking policy, room service/diet, and visiting hours. Information on how to activate the Rapid Response Team has been discussed. Patient/Family are encouraged to report perceived risks to care and to ask questions if they do not understand what they are told or what they should do.
[2025-06-02] MEDS: SODIUM CHLORIDE 0.9% IV 1,000 ML 125 ML IV CONT (15:52)
[2025-06-02] MEDS: HYDROcodone/acetaminophen (*CRX) 5-325 MG TABLET 2 TAB PO (15:53)
[2025-06-02] MEDS: SENNA/DOCUSATE SODIUM TABLET 2 TAB PO (15:54)
[2025-06-02] MEDS: KETOROLAC 15 MG/ML VIAL (*BKC) IV PUSH (17:41)
[2025-06-02] MEDS: ASPIRIN 81 MG ENTERIC TABLET PO (20:48)
[2025-06-02] MEDS: FAMOTIDINE 20 MG TABLET PO (20:48)
[2025-06-03] MEDS: KETOROLAC 15 MG/ML VIAL (*BKC) IV PUSH ×2 (00:18→05:46)
[2025-06-03 01:25] VITALS: BP 119/71; PULSE 57; RESP 16; TEMP 36.6; O2SAT 97
[2025-06-03] MEDS: ceFAZolin 2 GM in SODIUM CHLORIDE 0.9% IV 50 ML 100 ML IVPB ×2 (04:03→12:50)
[2025-06-03 04:42] VITALS: BP 111/63; PULSE 63; RESP 16; TEMP 35.8; O2SAT 97
[2025-06-03 08:53] VITALS: BP 113/68; PULSE 72; RESP 16; TEMP 36.1; O2SAT 99
--- NOTE | 2025-06-03 09:28 | PM.PNORT ---
Progress Note: A&P Assessment and Plan (1) Quadriceps muscle rupture: Qualifiers: Encounter type: subsequent encounter Laterality: left Qualified Code(s): S76.112D - Strain of left quadriceps muscle, fascia and tendon, subsequent encounter Code(s): S76.119A - Strain of unspecified quadriceps muscle, fascia and tendon, initial encounter Status: Acute Assessment and Plan: POD #1: LEFT QUADRICEPS TENDON REPAIR Continue PT/OT. TTWB with walker or crutches. MUST HAVE KNEE IMMOBILIZER WITH TTWB. HIGH FALL RISK. Continue pain control. Ice knee. Protect skin. DVT prophylaxis with Aspirin 81mg PO BID per Dr. Bravo. SCDs. Incentive Spirometry Use reviewed. Monitor Dressing. Bowel Regimen. Dispo: Home pending progress with PT/OT Follow up scheduled x 2 weeks. (2) Patellar tendon rupture: Qualifiers: Encounter type: subsequent encounter Laterality: left Qualified Code(s): S86.812D - Strain of other muscle(s) and tendon(s) at lower leg level, left leg, subsequent encounter Code(s): S86.819A - Strain of other muscle(s) and tendon(s) at lower leg level, unspecified leg, initial encounter Status: Acute Time Spent With Patient Time: Reviewed history, exam, radiographs and current labs with attending MD and covering surgeon, Dr. Bravo, who agrees with current plan as indicated above. No further recommendations from Dr. Bravo at this time. Subjective Subjective Date/Time Seen: 06/03/25 09:28 Post Op day: 1 Interval history: POD #1: LEFT QUADRICEPS TENDON REPAIR Patient doing well. Sitting up in chair, eating breakfast. Pain well controlled. Review of Systems Review of Systems: All systems reviewed & are unremarkable except as noted in HPI and below Exam Const: General: comfortable and no acute distress Resp: Effort & Inspection: normal respiratory effort Cardio: Rate: regular rate Rhythm: regular rhythm Extrem: Other: Knee immobilizer LLE. Thigh/calf soft. +ankle dorsiflexion/plantarflexion. Negative Darrick's sign. Objective Data Vital Signs Vital Signs: Vital Signs - 24 hr 06/02/25 11:00 06/02/25 14:06 06/02/25 14:20 Temperature 37.4 C 36.1 C L Pulse Rate 66 90 71 Respiratory Rate 14 16 Blood Pressure 139/73 157/96 H 136/71 Pulse Oximetry 100 100 100 Oxygen Delivery Room Air Simple Face Mask Room Air Oxygen Flow Rate 5 06/02/25 14:35 06/02/25 14:50 06/02/25 15:05 Temperature Pulse Rate 72 70 67 Respiratory Rate 18 16 12 Blood Pressure 144/85 H 148/88 H 148/73 H Pulse Oximetry 96 96 94 Oxygen Delivery Room Air Room Air Room Air Oxygen Flow Rate 06/02/25 15:25 06/02/25 15:35 06/02/25 15:59 Temperature 35.9 C L 35.9 C L Pulse Rate 62 62 Respiratory Rate 16 16 Blood Pressure 150/68 H 156/72 H Pulse Oximetry 98 95 Oxygen Delivery Room Air Oxygen Flow Rate 06/02/25 16:20 06/02/25 17:20 06/02/25 20:48 Temperature 36.1 C L 36.3 C L Pulse Rate 63 68 Respiratory Rate 16 16 Blood Pressure 147/64 H 147/77 H Pulse Oximetry 100 100 Oxygen Delivery Room Air Oxygen Flow Rate 06/02/25 20:50 06/03/25 01:25 06/03/25 04:42 Temperature 36.2 C L 36.6 C 35.8 C L Pulse Rate 70 57 L 63 Respiratory Rate 16 16 16 Blood Pressure 127/65 119/71 111/63 Pulse Oximetry 97 97 97 Oxygen Delivery Oxygen Flow Rate 06/03/25 08:19 Temperature Pulse Rate Respiratory Rate Blood Pressure Pulse Oximetry Oxygen Delivery Room Air Oxygen Flow Rate Intake/Output Intake/Output: Intake & Output 05/31/25 06/01/25 06/02/25 06/03/25 23:59 23:59 23:59 23:59 Intake Total 1072 350 Output Total 950 375 Balance 122 -25 Meds/Results Medications: Active Medications Generic Name Dose Route Start Last Admin Trade Name Freq PRN Reason Stop Dose Admin Acetaminophen 650 mg 06/02/25 15:08 Acetaminophen 325 Mg Tablet PO Q6H PRN Pain Rated 1-3 Hydrocodone Bitart/Acetaminophen 1 tab 06/02/25 15:08 Hydrocodone/Acetaminophen (*Crx) 5-325 Mg Tablet PO Q3H PRN Pain Rated 4-6 Hydrocodone Bitart/Acetaminophen 2 tab 06/02/25 15:08 06/02/25 15:53 Hydrocodone/Acetaminophen (*Crx) 5-325 Mg Tablet PO 2 tab Q6H PRN Administration Pain Rated 7-10 Amlodipine Besylate 10 mg 06/03/25 09:00 Amlodipine Besylate 10 Mg Tablet PO DAILY [facility] Aspirin 81 mg 06/02/25 21:00 06/02/25 20:48 Aspirin 81 Mg Enteric Tablet PO 81 mg Q12HR JERAMIE Administration Diazepam 5 mg 06/02/25 15:08 Diazepam (*Crx) 5 Mg Tablet PO Q8H PRN Muscle Spasm Famotidine 20 mg 06/02/25 21:00 06/02/25 20:48 Famotidine 20 Mg Tablet PO 20 mg Q12HR JERAMIE Administration Sodium Chloride 1,000 mls @ 125 mls/hr 06/02/25 15:08 06/02/25 15:52 Normal Saline Iv IV CONT 125 mls/hr .Q8H JERAMIE Administration Cefazolin Sodium 2 gm/ Sodium 50 mls @ 100 mls/hr 06/02/25 20:00 06/03/25 04:03 Chloride IVPB 06/03/25 12:29 100 mls/hr Q8H JERAMIE Administration Naloxone HCl 0.1 mg 06/02/25 15:08 Naloxone Hcl 0.4 Mg/Ml Vial IV PUSH Q2M PRN Opiate Reversal Ondansetron HCl 4 mg 06/02/25 15:08 Ondansetron Inj 4 Mg/2 Ml Vial IV PUSH Q4H PRN Nausea And Vomiting Polyethylene Glycol 17 gm 06/03/25 09:00 Polyethylene Glycol 3350 17 Gm Powd.Pack PO QAM [facility] Senna/Docusate Sodium 2 tab 06/02/25 17:00 06/02/25 15:54 Senna/Docusate Sodium Tablet PO 2 tab BID JERAMIE Administration Valsartan 320 mg 06/03/25 09:00 Valsartan 160 Mg Tablet PO QAM [facility]
[2025-06-03] MEDS: VALSARTAN 160 MG TABLET 320 MG PO (09:40)
[2025-06-03] MEDS: FAMOTIDINE 20 MG TABLET PO (09:40)
[2025-06-03] MEDS: ASPIRIN 81 MG ENTERIC TABLET PO (09:40)
[2025-06-03] MEDS: SENNA/DOCUSATE SODIUM TABLET 2 TAB PO (09:40)
[2025-06-03] MEDS: HYDROcodone/acetaminophen (*CRX) 5-325 MG TABLET 1 TAB PO (09:42)
--- NOTE | 2025-06-03 14:30 | WPDANESPN ---
Anes - Prog Note Post-Op Date/Time: 06/03/25 14:30 Cardiovascular status: normal Respiratory status: normal Airway patency: baseline Mental status: baseline Post-Op hydration status: normal Vital Signs: Last Vital Signs Temp 36.1 C L 06/03/25 08:53 Pulse 72 06/03/25 08:53 Resp 16 06/03/25 08:53 BP 113/68 06/03/25 08:53 Pulse Ox 99 06/03/25 08:53 O2 Del Method Room Air 06/03/25 09:11 O2 Flow Rate 5 06/02/25 14:06 Pain Score (VAS): 2 I/O: Intake & Output 06/02/25 06/03/25 06/03/25 23:59 07:59 15:59 Intake Total 272 400 240 Output Total 850 375 Balance -578 25 240 Post-procedural complaints: none Patient Feedback: Patient satisfied with anesthetic care.
== END 2025-06-03 16:15 | disposition home or self-care (01) ==
LOC: ANHSURGERY 10:29 → ANH3MEDSUR 15:12
PROVIDERS: PCP Family Medicine; Visit Provider Orthopaedic Surgery
PROC: (CPT 27385; principal; 2025-06-02 11:30)
DX: S76.112A Strain of left quadriceps muscle, fascia and tendon, initial encounter (principal); I10 Essential (primary) hypertension; W10.9XXA Fall (on) (from) unspecified stairs and steps, initial encounter; Z85.46 Personal history of malignant neoplasm of prostate
CPT/HCPCS: 27385; 93005; 97116; 97161; 97166; 97535; J0690; A9270; C1713; J0166; J1885; J2270; J2795; J3010; J7030; J7120